=== PATIENT | male | born 1955 | race African-American/Black ===

== ENCOUNTER → 2018-08-05 | Outpatient (CLI) | payer BC ==
--- NOTE | 2018-08-05 17:05 | CARDNUC ---
[place] [address] CARDIAC NUCLEAR IMAGING REPORT Name: EMILY NAILS Room: [facility]#: [id number] Admission: 08/05/18 Attend Phys: Rustam Calderon, Discharge: Date of : 57 Date of Service: 08/05/18 1704 Report #: [id number] THIS REPORT FOR: //name// APPROVED REPORT Study performed: 08/05/2018 09:49:21 Indication: Valve Replacement. Patient Location: Out-Patient Stress Tech: Dana Willis Stress Nurse: Winnie Anthony RN Ht: 5 ft 5 in Wt: 169 lbs BSA: 1.84 m2 BMI: 28.1 Medical History Medical History: Former Smoker, HTN, Hyperlipidemia. Medications: Warfarin, Lisinopril, Atrovastatin, ASA. Allergies: No known drug allergies Cardiac Risk Factors: Age, , FHX of CAD, HTN, Hyperlipidemia, Past Smoker, Valve replacement. Previous Cardiac Procedures: Valve replacement Pretest Chest Pain Characteristics: No chest pain Exercise History: Indeterminate Resting Data Rest SPECT myocardial perfusion imaging was performed in supine position 30 minutes following the intravenous injection of 10.0 mCi of Tc-99m Sestamibi. Time of rest injection: 08:25 The images were gated to evaluate regional wall motion and calculate left ventricular ejection fraction. Administration Route: IV Administration Site: Left AC Pharmacologic Stress Pharmacologic stress test was performed by injecting Regadenoson 0.4 mg IV push over 10-15 seconds immediately followed by the intravenous injection of 32.3 mCi of Tc-99m Sestamibi. Time of stress injection: 09:55 Administration Route: IV Administration Site: Left AC Heart Rate at time of stress injection: 79 bpm. Gated Stress SPECT was performed 45 minutes [place] [address] CARDIAC NUCLEAR IMAGING REPORT Name: EMILY NAILS Room: [facility]#: [id number] Admission: 08/05/18 Attend Phys: Rustam Calderon, Discharge: Date of : 57 Date of Service: 08/05/18 1704 Report #: [id number] The images were gated to evaluate regional wall motion and calculate left ventricular ejection fraction. Prone imaging was performed. Stress Test Details Stress Test: Pharmacologic stress was paired with low level exercise. Reason for pharmacologic stress test: physical limitation. HR Max Heart Rate (APMHR): 159 bpm Resting HR: 52 bpm Target HR (85% APMHR): 135 bpm Max HR Achieved: 122 bpm % of APMHR: 76 Recovery HR: 85 bpm BP Resting BP: 153/82 mmHg Max BP: 178/69 mmHg Recovery BP: 165/84 mmHg ECG Resting ECG: Sinus Rhythm, nonspecific ST-T abnormalities Stress ECG: Sinus Rhythm, nonspecific ST-T abnormalities ST Change: None Arrhythmia: None Recovery ECG: Sinus Rhythm, nonspecific ST-T abnormalities Recovery ST Change: None Recovery Arrhythmia: None Clinical Reason for Termination: Completed protocol Stress Symptoms: None Exercise duration: 4 min 00 sec Exercise capacity: 2.30 METs The patient tolerated Lexiscan infusion without significant symptoms. Nurse Comments Patient completed a walking Lexiscan well. Recovery unremarkable with PO caffeine. Patient escorted by staff to Nuclear Medicine for images. Patient stable with no complaints at that time. Stress ECG Conclusion The baseline 12-lead EKG shows sinus rhythm with T-wave inversion in the inferolateral leads. EKGs during and [place] [address] CARDIAC NUCLEAR IMAGING REPORT Name: EMILY NAILS Room: [facility]#: [id number] Admission: 08/05/18 Attend Phys: Rustam Calderon, Discharge: Date of : 57 Date of Service: 08/05/18 1704 Report #: [id number] sinus rhythm with continued T-wave inversion in the inferolateral leads. There were no significant ST segment changes noted. There were no stress-induced arrhythmias. Study Quality Study: Good Artifact: Mild Diaphragmatic artifact Study Data At rest, the left ventricular ejection fraction was 55%.. Post stress, the left ventricular ejection was 67%.. TID = 0.81. Perfusion Myocardial perfusion images show a mild region of photopenia baseline. Wall that resolves with post stress prone imaging suggesting diaphragmatic attenuation artifact. No other significant fixed or reversible defects were identified. Wall Motion There is a septal wall motion abnormality noted consistent with prior bypass procedure. Global LV systolic function is normal. Nuclear Conclusion ECG Findings: negative for ischemia Clinical Findings: negative for ischemia Nuclear Findings: negative for ischemia Exercise Capacity: not assessed Left Ventricular Function: preserved Risk Study: low Myocardial perfusion images show no defect to suggest infarct or ischemia. Left ventricular systolic function is well-preserved on gated studies. This is a low risk study. Interpreted by: Rustam Calderon M.D. [facility] Electronically Approved: 08/05/2018 17:04:37 <Conclusion> The baseline 12-lead EKG shows sinus rhythm with T-wave inversion in the inferolateral leads. EKGs during and post Lexiscan infusion show sinus rhythm with continued T-wave inversion [place] [address] CARDIAC NUCLEAR IMAGING REPORT Name: EMILY NAILS Room: [facility]#: [id number] Admission: 08/05/18 Attend Phys: Rustam Calderon, Discharge: Date of : 57 Date of Service: 08/05/18 1704 Report #: [id number] leads. There were no significant ST segment changes noted. There were no stress-induced arrhythmias. <ELECTRONICALLY SIGNED> By: Rustam Calderon MD, FACC 08/05/18 1704 1704 170 Rustam Calderon MD, FAC /INF
== END ==
LOC: M.NUC 04-08 08:41
DX: I25.10 Atherosclerotic heart disease of native coronary artery without angina pectoris (principal); I10 Essential (primary) hypertension; E78.5 Hyperlipidemia, unspecified; Z87.891 Personal history of nicotine dependence

== ENCOUNTER → 2020-04-02 | Outpatient (CLI) | payer OTHER ==
--- NOTE | 2020-04-02 16:10 | CARDNUC ---
[place] [address] CARDIAC NUCLEAR IMAGING REPORT Name: EMILY NAILS Room: [facility]#: [id number] Admission: 04/02/20 Attend Phys: Rustam Calderon, Discharge: Date of : 57 Date of Service: 04/02/20 1609 Report #: [id number] THIS REPORT FOR: cc: Marcello Mcfarlane MD, Vinod N. MD Park, Jin S. MD ~ APPROVED REPORT Study performed: 04/02/2020 11:30:00 Exam: Nuclear Stress Test Indication: Chest pain Patient Location: Out-Patient Stress Tech: Dana Willis Stress Nurse: Amaris Carter RN Ht: 5 ft 5 in Wt: 170 lbs BSA: 1.85 m2 BMI: 28.28 Medical History Medical History: CAD s/p CABG, HTN, Hyperlipidemia, Valvular heart disease Medications: asa 81, atorvastatin, lisinopril, ntg, warfarin Allergies: No known drug allergies Cardiac Risk Factors: Age, FHX of CAD, HTN, Hyperlipidemia, Tobacco History (Former) Previous Cardiac Procedures: CABG Exercise History: Physically active Stress Test Details Stress Test: Exercise stress testing was performed using a Alejandro protocol. HR Resting HR: 55 bpm Max Heart Rate (APMHR): 157 bpm Max HR Achieved: 152 bpm Target HR (85% APMHR): 133 bpm % of APMHR: 96 Recovery HR: 86 bpm BP Resting BP: 118/70 mmHg Max BP: 213/[place] [address] CARDIAC NUCLEAR IMAGING REPORT Name: EMILY NAILS Room: [facility]#: [id number] Admission: 04/02/20 Attend Phys: Rustam Calderon, Discharge: Date of : 57 Date of Service: 04/02/20 1609 Report #: [id number] Resting ECG: Sinus Rhythm Stress ECG: Sinus Rhythm ST Change: Non-ischemic Clinical Reason for Termination: Maximal effort, Fatigue Exercise duration: 7 min 59 sec Exercise capacity: 10.12 METs Overall Exercise Capacity for Age: Normal Functional Aerobic Impairment 93% NM EXAM: Myocardial Perfusion REST/STRESS Resting Data Rest SPECT myocardial perfusion imaging was performed in supine position 30 minutes following the intravenous injection of 10.7 mCi of Tc-99m Sestamibi. Time of rest injection: 09:55 The images were gated to evaluate regional wall motion and calculate left ventricular ejection fraction. Administration Route: IV Administration Site: Left AC Exercise Stress At peak stress, the patient was injected intravenously with 33.1mCi of Tc-99m Sestamibi. Time of stress injection: 11:20 Administration Route: IV Administration Site: Left AC Heart Rate at time of stress injection: 152 bpm. Patient continued to exercise for 1 minute(s). Gated Stress SPECT was performed 30 minutes after stress injection. The images were gated to evaluate regional wall motion and calculate left ventricular ejection fraction. Study Quality Study: Good Study Data Post stress, the left ventricular ejection was 68%.. Perfusion There is a medium area of moderately reduced uptake in the basal and mid segment of the inferior wall which [place] [address] CARDIAC NUCLEAR IMAGING REPORT Name: EMILY NAILS Room: [facility]#: [id number] Admission: 04/02/20 Attend Phys: Rustam Calderon, Discharge: Date of : 57 Date of Service: 04/02/201608 Report #: [id number] and improves on the resting images. This area thickens and moves normally and is most consistent with ischemia. Wall Motion Normal left ventricular wall motion. Nuclear Conclusion ECG Findings: negative for ischemia Clinical Findings: non-diagnostic Nuclear Findings: positive for ischemia Exercise Capacity: not assessed Left Ventricular Function: normal There is a partially reversible inferior wall defect, consistent with ischemia. There is normal LV systolic function. <ELECTRONICALLY SIGNED> By: Alen Cole MD 04/02/201608 08 1609 Alen Cole MD /INF
== END ==
LOC: M.NUC 03-29 12:19
PROVIDERS: ATTEND Internal Medicine Cardiovascular Disease
DX: R07.9 Chest pain, unspecified (principal)

== ENCOUNTER → 2020-04-13 | Outpatient (CLI) | payer OTHER ==
[2020-04-13] VITALS (9 sets, daily range): BP systolic 112–146; BP diastolic 62–75
[~2020-04-13] VITALS: Ht 165.1 cm; Wt 72.6 kg
[~2020-04-13] MED LIST: ASA81BEC PO; JANTOVEN4 MG PO; LINZESS290 MCG PO; LIPITOR10 MG PO; NORVASC 2.5 MG2.5 M1 PO; PRINIVIL10 MG PO; PROTONIX40 M2 PO
[2020-04-13 10:58] LABS: HEMATOCRIT 40.9 % (42.0-52.0); HEMOGLOBIN 13.9 gm/dL (14.0-18.0); MCH 27.5 pg (26.0-34.0); MCV 81.1 fL (80.0-100.0); MPV 7.6 fl. (7.2-11.1); RBC 5.05 mil/uL (4.50-6.00); RDW-CV 15.4 % (10.5-14.5); WBC 6.5 thou/uL (4.0-11.0)
[2020-04-13 11:08] LABS: PROTIME 10.9 Seconds (9.20-11.50)
[2020-04-13 11:09] LABS: ALBUMIN 3.8 g/dL (3.4-5.0); CALCIUM 8.5 mg/dL (8.5-10.1); TOTAL BILIRUBIN 0.6 mg/dL (<0.1-1.0); TOTAL PROTEIN 6.7 g/dL (6.4-8.2)
[2020-04-13 11:28] LABS: CHOLESTEROL 138 mg/dL (<200); HDL CHOLESTEROL 34 mg/dL (>40); LDL CHOLESTEROL 76 mg/dL (<100); SERUM ASSESSMENT Clear; TC:HDL 4.1 Ratio (Not establshd); TRIGLYCERIDE 140 mg/dL (<150); VLDL 28 mg/dL (<40)
--- NOTE | 2020-04-13 13:40 | EKG ---
[place] [address] ELECTROCARDIOGRAM REPORT Name: EMILY NAILS Room: [facility]#: [id number] Admission: 04/13/20 Attend Phys: Rustam Calderon, Discharge: Date of : 57 Date of Service: 04/13/20 1033 Report #: [id number] THIS REPORT FOR: //name// [facility] Test Date: 2020-04-13 Test Time: 10:33:35 Pat Name: EMILY NAILS Department: Room: Gender: [employer]: : [id number] Requested By: Rustam Calderon Order Number: [id number] Kenia MD: Rustam Calderon Measurements Intervals [place] Rate: 56 P: 14 IN: 142 QRS: 50 QRSD: 102 T: -26 QT: 414 QTc: 400 Interpretive Statements Sinus rhythm Inferior infarct, age indeterminate Baseline wander in lead(s) III No previous ECG available for comparison Electronically Signed On 04-13-2020 13:40:25 NEUROSCIENCE DIRECTOR NA by Rustam Calderon [email or web address] <ELECTRONICALLY SIGNED> By: Rustam Calderon MD, [facility] 04/13/20 1340 1033 1033 Rustam Calderon MD, [facility] /EPI
--- NOTE | 2020-04-16 17:26 | CARD ---
[address] [address] CARDIAC CATH REPORT Name: EMILY NAILS Room: [facility]#: [id number] Admission: 04/13/20 Attend Phys: Rustam Calderon MD Discharge: Date of : 57 Report #: [id number] THIS REPORT FOR: cc: Marcello Mcfarlane MD, Vinod N. MD ~ Rustam Calderon MD [facility] APPROVED REPORT Study performed: 04/13/2020 12:04:02 Patient Details Patient Status: Out-Patient Room #: The patient is a 64 year-old male Event Personnel Rustam Calderon Mainframe Developer, Teetee Varner RN Customer Experience Specialist, Sharlene Raman RN Monitor, Kris Rose RTR Scrub, Kong Ortega MACHINE ERECTOR Monitor Procedures Performed Art Access - R femoral artery* Left Heart Cath Coronaries, Bypass Grafts [id number] [facility]/Lab Medications/Medications given during procedure Benadryl IV 50 mg Procedure Narrative The patient was brought electively to the Cardiac Catheterization Laboratory and was prepped and draped in a sterile manner. The right femoral was infiltrated with 1% Lidocaine subcutaneous anesthesia. A Protivin 6 FR sheath was inserted into the right femoral artery. Coronary angiography was performed using coronary diagnostic catheters. The right coronary system was accessed and visualized with a 3DRC catheter. The left coronary system was accessed and visualized with a JL4 catheter. The left ventricle was accessed and visualized with a PIG Tail catheter. Left ventricular/Aortic Valve gradient assessed via catheter pullback. Left ventriculogram was performed in ARNDT projection. Closure device was deployed with a Fr . The patient tolerated the procedure well and there were no complications associated with the procedure. There was no hematoma. Intraoperative Conscious Sedation Sedation start time: 12:26 Case end Time: 12:42 [place] [address] CARDIAC CATH REPORT Name: EMILY NAILS Room: [facility]#: [id number] Admission: 04/13/20 Attend Phys: Rustam Calderon MD Discharge: Date of : 57 Report #: [id number] Fentanyl 50 mcg Versed 2 mg Fluoro Time: 3.1 minutes Dose: DAP 49839 cGycm2 723 mGy Contrast Type and Amount: Visipaque 120 ml [place] Artery Percent Stenosis A SANTOS graft to the distal LAD is widely patent with good distal anastomoses. The saphenous vein graft to the first obtuse marginal branch is widely patent with good proximal and distal anastomoses. The saphenous vein graft to the right PDA is widely patent with good proximal and distal anastomoses. Diagnostic Cath Left Main The left main coronary artery is normal and bifurcates into a left anterior descending and circumflex coronary artery. LAD The left anterior descending is diffusely diseased and then totally occluded after the takeoff of a small first diagonal branch. The distal LAD is filled by a SANTOS graft. There is diffuse moderate plaquing noted in the mid to distal LAD. Circumflex The circumflex coronary artery is totally occluded proximally. OM1 A large branch first obtuse marginal branch is filled by saphenous vein graft. The vessel retrogradely fills the circumflex and an intermediate ramus branch. Right Coronary The right coronary artery is totally occluded proximally. R PDA The right PDA is grafted and fills by saphenous vein graft. No significant disease noted. RPLV The posterior lateral branch fills in retrograde fashion from a saphenous vein graft. No significant disease noted. Ramus Retrogradely filled by saphenous vein graft to an obtuse marginal. Left Ventriculography The left ventricle is normal in size with normal contractility. The left ventricular ejection fraction is estimated to be 55-60%. Hemodynamics The aortic pressure is 134/48 mmHg with a mean of 78 mmHg. The left ventricular pressure is 132/-8 mmHg with a mean of mmHg. The left ventricular end diastolic pressure is 16 mmHg. [place] [address] CARDIAC CATH REPORT Name: EMILY NAILS Room: [facility]#: [id number] Admission: 04/13/20 Attend Phys: Rutsam Calderon MD Discharge: Date of : 57 Report #: [id number] across the aortic valve upon pullback. Conclusion 1. Three-vessel coronary artery disease with occluded LAD, circumflex and right coronary arteries as outlined above. 2. Minimally elevated left ventricular end-diastolic pressure. 3. Patent SANTOS graft to the LAD. 4. Patent saphenous vein graft to the first obtuse marginal and right PDA. 5. Normal left ventricular systolic function by left ventriculography. Recommendations 1. Continue aggressive medical management and risk factor modification. <ELECTRONICALLY SIGNED> By: Rustam Calderon MD, [facility] 04/16/20 172 25 172Micjigna Calderon MD, FACC /INF
== END | disposition home or self-care (01) ==
LOC: M.CL 09:52
PROVIDERS: ATTEND Internal Medicine Cardiovascular Disease
DX: R07.9 Chest pain, unspecified (principal); I25.810 Atherosclerosis of coronary artery bypass graft(s) without angina pectoris; R94.39 Abnormal result of other cardiovascular function study; I10 Essential (primary) hypertension; E78.2 Mixed hyperlipidemia; Z98.890 Other specified postprocedural states; Z79.899 Other long term (current) drug therapy; Z20.828 Contact with and (suspected) exposure to other viral communicable diseases; Z87.891 Personal history of nicotine dependence; Z79.82 Long term (current) use of aspirin; Z95.2 Presence of prosthetic heart valve; Z95.1 Presence of aortocoronary bypass graft